=== PATIENT | female | born 1945 | race Caucasian/White ===

== ENCOUNTER → 2016-07-01 | Outpatient (CLI) | payer MEDICARE, BC ==
[~2016-07-01] MED LIST: ALEVE220 MG PO; CALCIUM 500 +1 EAC2 PO; IBUPROFEN800 MG PO; LIPITOR20 M1 PO; MAGNESIUM400 MG PO; PRILOSEC20 MG PO; PRINIVIL (ZESTRI5 MG PO; TOPROL XL25 MG PO; TYLENOL EXTRA500 MG PO; VITAMIN C500 M1 PO
== END | disposition disaster alternative care site (69) ==
LOC: GBCOE 12:22
DX: Z12.31 Encounter for screening mammogram for malignant neoplasm of breast (principal)
CPT/HCPCS: G0202

== ENCOUNTER 2016-11-08 09:00 | Inpatient (IN) | payer MEDICARE, BC ==
[~2016-11-08] VITALS: Ht 162.6 cm; Wt 101.2 kg
--- NOTE | ~2016-11-08 | OR ---
PATIENT'S NAME: MILA GILLESPIENE Dariana [facility] AGE: 71 Y [address] ROOM: [place] [id number] LOCATION: [facility] ADMIT DATE: 11/22/2016 OR/Procedure Report DISCHARGE DATE: 11/25/2016 FAMILY PHYSICIAN: Mckenna Caldwell MD ATTENDING PHYSICIAN: DARNELL LERMA SURGEON: Darnell Lerma MD BIOINFORMATICS SOFTWARE ENGINEER: ZACARIAS Najera DATE OF PROCEDURE: 11/22/2016 CORRECTED COPY - Household Appliance Installer inserted / 12-01-2016 / corky PRE-OP DIAGNOSES: 1. Left knee degenerative joint disease (primary osteoarthritis). 2. Obesity. POST-OP DIAGNOSES: 1. Left knee degenerative joint disease (primary osteoarthritis). 2. Obesity. OPERATION: Left total knee arthroplasty with computer navigation. ANESTHESIA: Spinal anesthesia plus adductor canal block plus periarticular local anesthesia (ropivacaine with epinephrine and Toradol). ESTIMATED BLOOD LOSS: Less than 10 mL. DRAIN: None. SPECIMEN: None. COMPLICATIONS: None. IMPLANT SYSTEM: Braddock triathlon. Size 4 left posterior stabilized femoral component. Size 3 [place] Modular tibial base plate. 11 mm posterior stabilized tibial size 3 X3 tibial polyethylene insert. 32 mm oval X3 patella component (triple pegged). INDICATIONS FOR SURGERY: Kenji Gillespie is a 71-year-old female who presents with advanced left knee degenerative joint disease and associated severely compromised activities of daily living. The patient has decided to proceed with knee replacement after having been thoroughly counseled regarding the associated risks, benefits, and limitations. We have specifically reviewed the risks and implications of infection, deep venous thrombosis, pulmonary embolism, mortality, neurovascular complications, blood transfusion (and associated potential for disease transmission or transfusion reaction), stiffness, instability, mechanical deterioration of the components (due to [facility] 71 Y [address] ROOM: [place] [address] LOCATION: [facility] ADMIT DATE: 11/22/2016 OR/Procedure Report DISCHARGE DATE: 11/25/2016 FAMILY PHYSICIAN: Mckenna Caldwell MD ATTENDING PHYSICIAN: DARNELL LERMA wear and or loosening), and the potential need for revision. We have also emphasized the importance of active involvement and compliance with post- operative physical therapy as a means of optimizing range of motion and functional recovery. Informed consent has been granted. DESCRIPTION OF PROCEDURE: The patient was positioned supine after administration of anesthesia and prophylactic antibiotics. A well-padded pneumatic tourniquet was placed around the left proximal thigh, and the left lower extremity was prepped and draped with vigilant sterile technique. The patient's name as well as the intended operative side and procedure were confirmed with a verbal time-out involving myself, the circulating nurse, the scrub nurse, and the anesthesiologist. Examination under anesthesia demonstrated well-healed inferomedial and inferolateral arthroscopy portal scars. There were no active skin lesions or masses. There was a moderate effusion. There was no erythema. There was no abnormal warmth. Range of motion under anesthesia was from full extension to 120 degrees of flexion. There was no clinically evident ligamentous insufficiency. The left lower extremity was elevated and exsanguinated with an Esmarch wrap, and the pneumatic tourniquet was inflated to 300 mmHg. The knee was approached through a longitudinal midline incision. A medial parapatellar arthrotomy was performed and the patella was everted. Examination of the joint space demonstrated a moderate amount of benign-appearing translucent synovial fluid. There were no loose bodies. There was no synovitis. There was no chondrocalcinosis. There was a large osteophyte at the medial and lateral margins of the intercondylar notch. The anterior cruciate ligament was severely attenuated. The posterior cruciate ligament was intact. There was a 2 cm diameter region of full-thickness articular cartilage loss at the lateral aspect of the patella. There was a 1 cm diameter region of full-thickness articular cartilage loss at the central aspect of the patella. There were moderate-sized osteophytes at the superior and inferior margins of the patella as well as at the superior and lateral margins of the femoral trochlea. There was a 2 cm diameter region of full-thickness articular cartilage loss at the lateral aspect of the femoral trochlea. There was a moderate-sized osteophyte at the medial margin of the femoral trochlea. There was a large osteophyte at the medial femoral condyle. There was full-thickness loss of articular cartilage involving 90% of the medial femoral condyle and 80% of the medial tibial plateau. There was a moderate-sized osteophyte at the medial tibial plateau. There was a 1 cm diameter region of high-grade partial thickness articular cartilage loss at the medial aspect of the lateral femoral condyle. There were grade 2 degenerative changes at the distal aspect of the lateral femoral condyle. There was a moderate-sized osteophyte at the lateral femoral PATIENT'S NAME: KENJI GILLESPIE [facility] AGE: 71 Y [address] ROOM: [address] [address] LOCATION: [facility] ADMIT DATE: 11/22/2016 OR/Procedure Report DISCHARGE DATE: 11/25/2016 FAMILY PHYSICIAN: Mckenna Caldwell MD ATTENDING PHYSICIAN: DARNELL LERMA. There was a small osteophyte at the lateral tibial plateau. There was a 1 cm diameter region of grade 3 chondromalacia at the medial aspect of the lateral tibial plateau, and there was full-thickness fissuring of the articular cartilage at the medial aspect of the lateral tibial plateau. There was moderate inner perimeter tearing of the lateral meniscus. There was extensive complex degenerative tearing of the medial meniscus with a large flap tear at the posterior horn of the medial meniscus. Remnants of the menisci and cruciate ligaments were excised. The [employer] computer navigation femoral tracker was pinned in place at the distal aspect of the femoral trochlea. Absence of motion between the femur and the tracking device was confirmed manually and visually. Femoral osseous landmarks were obtained in order to calibrate the computer navigation system. Landmarks included the center of rotation of the ipsilateral hip, the center-point of the distal femur, the femoral AP axis, 57 points on the medial femoral condyle articular surface, and 57 points on the lateral femoral condyle articular surface. The [employer] computer navigation system was subsequently utilized to position the distal femoral resection block such that the distal femoral resection was performed perfectly perpendicular to the femoral mechanical axis. The distal femoral resection was performed with a Capsule[employer] Precision oscillating saw. The [employer] computer navigation tibial tracker was pinned in place at the anterior aspect of the tibial plateau. Absence of motion between the tibia and the tracking device was confirmed manually and visually. Tibial osseous landmarks were obtained in order to calibrate the computer navigation system. Landmarks included the center-point of the tibial plateau, the AP tibial axis, 57 points on the medial tibial plateau articular surface, 57 points on the lateral tibial plateau articular surface, the medial malleolus, and the lateral malleolus. The [employer] computer navigation system was subsequently utilized to position the proximal tibial resection block such that the proximal tibial resection was performed perfectly perpendicular to the tibial mechanical axis. The proximal tibial resection was performed with a Capsule[employer]fm Precision oscillating saw. Perpendicularity of the tibial resection with respect to the tibial shaft axis was reconfirmed by inserting a spacer-block attached to an extramedullary guide phill. External rotation of the anterior and posterior femoral resections was set parallel to the epicondylar axis and carefully adjusted in order to create a rectangular flexion gap. The box resection was performed with a reciprocating saw. Anterior and posterior chamfer resections were performed with the oscillating saw. Posterior condyle osteophytes were excised with an osteotome. All other osteophytes were excised with a rongeur. Resection of all remnants of the menisci was reconfirmed. Flexion and extension gaps were confirmed to be symmetric and well balanced with a spacer-block technique. PATIENT'S NAME: KENJI GILLESPIE [facility] AGE: 71 Y [address] ROOM: [place] [id number] LOCATION: [facility] ADMIT DATE: 11/22/2016 OR/Procedure Report DISCHARGE DATE: 11/25/2016 FAMILY PHYSICIAN: Mckenna Caldwell MD ATTENDING PHYSICIAN: DARNELL LERMA The patella resection was performed with an oscillating saw such that the composite thickness of the reconstructed patella was equivalent to the thickness of the [place] patella. Patella tracking was confirmed to be optimal. Patella tracking was optimal, and there was no need for a lateral retinacular release. All trial components were removed and all prepared osseous surfaces were thoroughly irrigated with pulsatile saline lavage and dried prior to cementing all three components in a single stage using Capsule.fm Simplex cement containing pre-mixed tobramycin. All extruded excess cement was removed. The entire joint space was thoroughly inspected and thoroughly irrigated with bacteriostatic pulsatile saline lavage to assure that there was no residual debris of any sort. Final range of motion was from full extension (with no passive hyperextension) to 130 degrees of flexion. Patella tracking was reconfirmed to be optimal. There was excellent anteroposterior stability at 90 degrees of flexion. There was less than 1 mm of medial lift-off to valgus stress in full extension. There was less than 1 mm of lateral lift-off to varus stress in full extension. The arthrotomy was closed with multiple simple and [id number] interrupted #1 Vicryl. Subcutaneous tissues were thoroughly re-irrigated with bacteriostatic pulsatile saline lavage. Subcutaneous tissues were re- approximated with simple buried interrupted #0 Vicryl sutures. The skin was closed with simple buried interrupted 2-0 Vicryl sutures followed by surgical loren. The dressing consisted of Xeroform gauze, 4x4 gauze, ABD pads and two 6-inch Akbar Wraps. There were no intra-operative complications. It should be noted that the physician's mailroom assistant played an active, integral role throughout this entire operation. By providing expert retraction, they greatly facilitated and expedited safe and effective exposure of the distal femur, proximal tibia and patella for preparation and implantation of the components. They were also actively involved in the patient's positioning, prepping and draping, as well as wound closure. DARNELL LERMA MD PATIENT'S NAME: KENJI GILLESPIE [facility] AGE: 71 Y [address] ROOM: [place] [address] LOCATION: [facility] ADMIT DATE: 11/22/2016 OR/Procedure Report DISCHARGE DATE: 11/25/2016 FAMILY PHYSICIAN: Mckenna Caldwell MD ATTENDING PHYSICIAN: DARNELL LERMA/arpit /[id number] CORRECTED COPY - Household Appliance Installer 12-01-2016 / corky d: 11/22/16 1032 t: 12/10/16 0748, OPERATIVE SUMMARY
--- NOTE | ~2016-11-08 | DS ---
PATIENT'S NAME: KENJI AUGUST [facility] AGE: 71 Y [address] ROOM: [place] [address] LOCATION: [facility] ADMIT DATE: 11/22/2016 Discharge Summary DISCHARGE DATE: 11/25/2016 FAMILY PHYSICIAN: Mckenna Caldwell MD ATTENDING PHYSICIAN: Darnell Lerma PRIMARY DIAGNOSIS: Degenerative joint disease of the left knee. SECONDARY DIAGNOSES: 1. Obesity. 2. Diabetes mellitus type 2. 3. Gastroesophageal reflux disease. 4. Cervical degenerative disk disease. PROCEDURE PERFORMED: Left total knee arthroplasty. HISTORY: The patient is a 71-year-old female, who presents with advanced left knee degenerative joint disease and associated severely compromised activities of daily living. The patient has decided to proceed with total knee arthroplasty after having been thoroughly counseled regarding the risks, benefits, limitations, and alternatives. Please refer to the outpatient clinic notes and admission history and physical for this patient. HOSPITAL COURSE: The patient underwent a left total knee arthroplasty on 11/22/2016 without complications. Spinal anesthesia plus adductor canal block plus periarticular local anesthesia was utilized. The patient received 24 hours of perioperative prophylactic antibiotics and remained hemodynamically stable, neurovascularly intact throughout the entire hospital course. The postoperative prophylactic deep venous thrombosis prophylaxis consisted of Xarelto, early mobilization and pneumatic compression devices. Daily physical therapy for gait training, transfer training range of motion and quadriceps isometric exercises were received. The patient progressed well in physical therapy. On the date of discharge, 11/25/2016, the incision at the knee was healing well and showed no signs of infection. DISPOSITION: [facility]. DISCHARGE ACTIVITY: The patient is to bear weight as tolerated with range of motion and quadriceps isometric exercises as instructed. The operative extremity is to be elevated at least 90% of the day. There is to be sterile 4x4 gauze dressings to the incision daily. Dr. Lerma is to be notified immediately if there is any increased pain, fevers, chills, erythema, or drainage. DISCHARGE MEDICATIONS: PATIENT'S NAME: KENJI AUGUST [facility] AGE: 71 Y [address] ROOM: [place] [address] LOCATION: [facility] ADMIT DATE: 11/22/2016 Discharge Summary DISCHARGE DATE: 11/25/2016 FAMILY PHYSICIAN: Mckenna Caldwell MD ATTENDING PHYSICIAN: Darnell Lerma 1. Xarelto 10 mg 1 tablet p.o. daily for 12 days for postoperative DVT prophylaxis. 2. Oxycodone 5 mg 1 to 2 tablets p.o. every 4 hours p.r.n. for pain. 3. Diazepam 5 mg 1/2 to 1 tablet p.o. every 6 hours p.r.n. for muscle spasms. The patient was then instructed to continue all her other pre-admission medications as instructed by her internal medicine doctor. FOLLOWUP: Followup appointment is to be with Dr. Lerma's office on November 29, 2016, for her initial postoperative evaluation with x-rays and staple removal. ALDO SALGUERO PA-C FOR DARNELL LERMA MD SMW/modl /[id number] d: 11/30/16 0140 t: 12/14/16 1209, DISCHARGE SUMMARY
[2016-11-08] MEDS ORDERED: ALEVE220 MG PO (09:23)
[2016-11-08] MEDS ORDERED: PRILOSEC20 MG PO (09:23)
[2016-11-08] MEDS ORDERED: IBUPROFEN800 MG PO (09:23)
[2016-11-08] MEDS ORDERED: VITAMIN C500 M1 PO (09:25)
[2016-11-08] MEDS ORDERED: MAGNESIUM400 MG PO (09:25)
[2016-11-08] MEDS ORDERED: CALCIUM 500 +1 EAC2 PO (09:27)
[2016-11-19] MEDS ORDERED: TOPROL XL25 MG PO (15:11)
[2016-11-19] MEDS ORDERED: LIPITOR20 M1 PO (15:11)
[2016-11-19] MEDS ORDERED: PRINIVIL (ZESTRI5 MG PO (15:11)
[2016-11-22] MEDS ORDERED: TYLENOL EXTRA500 MG PO (06:00)
--- NOTE | 2016-11-22 15:23 | NUR ---
Significant Event: PT ALRRIVED ON FLOOR AT 1015 FROM PACU. UP IN THE RECLINER AROUND 1430. VOIDED AT THAT TIME. OXICODONE 5MG PO FOR PAIN.WILL UPDATE YOU WITH LAST TIME. NORMAL SENSATION TTO ODALYS LEGS AND FEET. ICE TO LT KNEE. POST OP VITALS COMPLETED AT 1700. FAMILY IN THE ROOM. TRANSFERS WELL. Follow up:
--- NOTE | 2016-11-22 15:29 | NUR ---
Introduced self/role to patient and son at bedside. Patient attended the preop class on 11/11/16. Reports she lives alone in [facility] in [place]. Law 1 step into home with railing on right side. Has 13 steps in the home with railing on both sides. Has a walk in shower and a bath seat. Has walker, cane, wc, tall toilet, leg school lunch monitor, dressing stick, long shoe horn and hand held shower head. Son Catrachito will be able to help after surgery. Will follow for identified needs or concerns. Reviewed and encouraged use of IS. Patient demonstrates with excellent technique.
--- NOTE | 2016-11-23 04:27 | NUR ---
Patient is alert and oriented x3, VSS stable, likes to chit chat, dressing clean dry and intact, ice in place to knee, transfer one assist to commode, walker to the bathroom once this shift, csm with in normal limits, has rested well, taking roxicodone for pain control
--- NOTE | 2016-11-23 09:50 | NUR ---
Introduced self/role to patient. She lives her in [place] alone but her son Catrachito is around. He has to leave for work around 1400. She purchased a recliner to sleep in, on the main level. Otherwise she has steps. There is a chair lift to the basement but she can't bend her leg far enough to use at this point. She was questioning going home morning. She brought HHC up and stated she was given HHC info from Dr Myers's office. We talked briefly about their services, will look into that further and get back to her today or tomorrow. Added my name to her marker board. 1005 Spoke to David Pérez about HHC and discharge of Tuesday vs . He doesn't think HHC is needed, will go talk with her. 1120 David followed up with me and at this point no HHC for patient. No needed.
--- NOTE | 2016-11-23 15:11 | NUR ---
Significant Event: PT ALERT AND ORIENTED. PAIN CONTROLED WITH ROXICODONE. NAUSEA JUST BEFORE LUNCH AND ZOFRAN GIVEN. OK THIS AFTERNOON. DRESSING TO KNEE INTACT. ICE TO KNEE. HOME ON TUESDAY. FAMLY IN THE ROOM THIS AFTERNON. ANTIBIOTICS COMPLETED. NO BM TODAY. VOIDS WELL. AMBULATES WITH 1 ASSIST. Follow up:
--- NOTE | 2016-11-24 05:11 | NUR ---
Significant Event: Alert/oriented x3. VSS room air. CSM WNL. EZ wrap to knee. Saline lock to left posterior forearm. 1 assist ambulation with walker and gait belt. Dilaudid 0.2 mg IVP at 2135; Roxicodone 5 mg at 1918, 2132, 2332, 050. Has been sleeping each time reassessed for pain. Dressing C/D/I. Bilateral foot pumps on. Plans to go home morning. Voids well. No BM. Follow up:
--- NOTE | 2016-11-24 10:20 | NUR ---
Let a message for Radha-ZACARIAS with [facility] - are we wanting HHC or not? 1025 spoke with David Beaver and Eunice Aranda, thinking SNF now due to night last night. 1030 David informed me Radha call him about the HHC and to not worry about it at this time. 1145 Eunice told me to pursue SNF. Called homes: [facility] no admits this week, [facility] full, [facility] not taking any more, [facility] has a semi private room. 1220 Spoke with patient. Faxed referral to [facility]. [address] [facility] called and they are looking over her papers now. 1525 Melly called, [facility] will be over at 0900 to do paperwork, they would like ST, and to call Jan for pickup time. [address] [facility] will be here at 1215 tomorrow. Left a note on the chart, informed charge nurse Kate and nurse Poppy. 1620 Called [facility] Coelho. Orders on the chart and packet started.
[2016-11-24 16:08] LABS: BILIRUBIN URINE NEGATIVE (NEGATIVE); BLOOD URINE NEGATIVE /UL (NEGATIVE); COLOR URINE YELLOW (YELLOW); GLUCOSE URINE NEGATIVE (NEGATIVE); KETONE URINE NEGATIVE (NEGATIVE); LEUKOCYTES URINE NEGATIVE /UL (NEGATIVE); NITRITE URINE NEGATIVE (NEGATIVE); PROTEIN URINE NEGATIVE (NEGATIVE); TURBIDITY URINE CLEAR (CLEAR); UROBILINOGEN URINE NORMAL (NORMAL)
--- NOTE | 2016-11-24 17:19 | NUR ---
Pt alert, oriented. some forgetfulness. Plan is transfer to [facility] tomorrow per van at 1215. Would be home some on her own as son works. Pt ambulates well with one assist. Brief on as incontinent at times. Was voided about every 2 hrs. UA checked and was normal. Pt has had roxicodone po x3, last at 1710. Pt dressing changed and incision intact with loren. CSM WNL. Pt uses IS at 1750. Ice to knee.
--- NOTE | 2016-11-25 04:11 | NUR ---
Significant Event: Alert/oriented x3. Plan is to transfer to [facility] per van at 1215. Brief on due to earlier incontinence, no incontinence this shift, goes to bathroom approximately every 2 hrs. 1 assist ambulation using walker and gait belt. Dressing C/D/I. EZ wrap, bilateral foot pumps. Teds removed at HS. VSS, CSM WNL. Saline lock to left dorsal distal forearm. Roxicodone 5 mg at 2248, 0141; Valium 5 mg at 2331. Has slept most of night since 2200. Follow up:
--- NOTE | 2016-11-25 04:33 | NUR ---
Roxicodone 5 mg and scheduled Tylenol ES at 0431 for pain 5/10.
--- NOTE | 2016-11-25 09:50 | NUR ---
Faxed orders to [facility] has been here to complete the paperwork already.
--- NOTE | 2016-11-25 10:31 | NUR ---
Significant Event: UP IN RECLINER. AMBUL TO [facility], OUT IN MAY WITH 1 ASSIST, TOLERATES ACTIVITY WELL..TAKES PILLS W/OUT DIFF...HAD ROXICODONE 5 MG 1 TAB TWICE LAST AT 1015...NO BM SINCE THE ...NEEDS MUCH ENC TO TAKE SOMETHING FOR BOWELS. CSM GOOD, MEPILEX DRSG D/I TO KNEE. HAD VALIUM LAST NITE AT 2300, REPORTED THAT THIS REALLY HELPED HER... Follow up:
== END 2016-11-25 13:30 | DRG 470 ==
LOC: G3N 11-22 05:11
PROVIDERS: ADMIT Orthopaedic Surgery
PROC: 0SRD0J9 Replacement of Left Knee Joint with Synthetic Substitute, Cemented, Open Approach (ICD-10-PCS; principal; 2016-11-22)
PROC: XR2H021 Monitoring of Left Knee Joint using Intraoperative Knee Replacement Sensor, Open Approach, New Technology Group 1 (ICD-10-PCS; principal; 2016-11-22)
DX: M17.12 Unilateral primary osteoarthritis, left knee (principal); E11.9 Type 2 diabetes mellitus without complications; E66.9 Obesity, unspecified; K21.9 Gastro-esophageal reflux disease without esophagitis; M50.30 Other cervical disc degeneration, unspecified cervical region; Z68.38 Body mass index [BMI] 38.0-38.9, adult
CPT/HCPCS: C1713; C1776; J0690; J1100; J1170; J1885; J2001; J2250; J2405; J2795; J7030

== ENCOUNTER → 2016-11-09 | Outpatient (CLI) | payer MEDICARE, BC | END | disposition disaster alternative care site (69) | LOC: LFPA 11:51 | DX: R82.90 Unspecified abnormal findings in urine (principal) ==

== ENCOUNTER → 2016-11-09 | Outpatient (CLI) | payer MEDICARE, BC | LOC: LFPA 10:39 | DX: Z01.818 Encounter for other preprocedural examination (principal) ==

== ENCOUNTER → 2016-11-11 | Outpatient (CLI) | payer MEDICARE, BC | END | disposition disaster alternative care site (69) | LOC: GNJRC 10:23 | DX: Z01.812 Encounter for preprocedural laboratory examination (principal); M17.12 Unilateral primary osteoarthritis, left knee ==

== ENCOUNTER → 2016-12-03 | Outpatient (CLI) | payer MEDICARE, BC ==
[2016-12-03 23:09] LABS: BILIRUBIN URINE NEGATIVE (NEGATIVE); BLOOD URINE 10 /UL (NEGATIVE); COLOR URINE YELLOW (YELLOW); GLUCOSE URINE NEGATIVE (NEGATIVE); KETONE URINE NEGATIVE (NEGATIVE); LEUKOCYTES URINE 500 /UL (NEGATIVE); NITRITE URINE POSITIVE (NEGATIVE); PROTEIN URINE 15 mg/dL (NEGATIVE); TURBIDITY URINE 2+ (CLEAR); UROBILINOGEN URINE NORMAL (NORMAL)
[2016-12-03 23:24] LABS: BACTERIA URINE MANY (NEGATIVE); RBC URINE RARE #/HPF (NEGATIVE); WBC URINE 50-100 #/HPF (NEGATIVE)
== END ==
DX: R68.89 Other general symptoms and signs (principal)